=== PATIENT | female | born 1985 | race Hispanic/Latino ===

== ENCOUNTER → 2017-08-21 19:52 | Outpatient (CLI) | payer BC, SELFPAY ==
[2017-08-24 08:18] LABS: HPV Reflexed? NOT INDICATED
== END ==
PROVIDERS: Visit Provider Obstetrics & Gynecology
DX: Z12.4 Encounter for screening for malignant neoplasm of cervix (principal)
CPT/HCPCS: 88175; G0145

== ENCOUNTER 2018-06-07 06:46 | Emergency (ER) | payer BC, SELFPAY ==
[2018-06-07 06:48] VITALS: BP 101/74; PULSE 57; RESP 16; TEMP 36.6; O2SAT 99
--- NOTE | 2018-06-07 06:56 | ED.DCSUM_ITS ---
History of Present Illness Chief Complaint: Flank Pain Informant: Patient Onset: Days - Worse past 2 days. Pressure sensation left lower quadrant radiating to the left flank., Month(s) - She reports onset of intermittent discomfort left lower quadrant approximately 2 months ago. Context: Sudden Onset Timing: Continuous - Continuous past 2 days, Intermittent - Intermittent until 2 days ago Quality: Pressure sensation Location: LLQ and left flank Current Severity: Moderate Maximum Severity: Severe Worsened by: Worse supine Relieved by: Apparently better if upright Associated Symptoms: Nausea and pressure with urination Narrative: Patient is a 35-year-old woman who presents with initially intermittent left lower quadrant abdominal pain that is now constant for the past 2 days. She describes as a pressure sensation. The discomfort radiates to the left flank. There is pressure with urination. She denies hematuria. Denies history of renal ureterolithiasis. Last normal menstrual period May 17. She is sexually active. Uses no form of control. She has no history of gynecologic problems. There is no history of renal or ureterolithiasis. There is no history of trauma. She denies fever, chills or night sweats. She does report nausea without vomiting or diarrhea. Prior similar symptoms: No Recent Illness/Hospitalization: No - Past Medical History (1) No significant past medical history Status: Acute Past Medical History - Allergies and Home Meds Allergies/Adverse Reactions: Allergies No Known Allergies Allergy (Verified 06/07/18 06:47) Primary Care Physician: Care Physician,No Primary [Primary Care Provider] - Prior records reviewed: Yes Past Medical History: None Surgical History: no surgical history Lives: Spouse/ Significant Other Smoking Status: Never smoker Alcohol: Occasional Drugs: None Review of Systems General: Denies: Chills, Fever, Malaise, Sweats, Weight loss Eyes: Denies: Visual changes - bilaterally, Diplopia ENT: Denies: Rhinorrhea, Sore throat Cardiovascular: Denies: Chest pain, Palpitations Respiratory: Denies: Dyspnea, Cough, Dyspnea on exertion Gastrointestinal: Reports: Abdominal pain, Nausea Genitourinary: Reports: - - She reports urgency and pressure.. Denies: Dysuria, Hematuria, Frequency Musculoskeletal: Reports: Back pain - Left flank past 2 days. Denies: Myalgias, Arthralgias, Neck pain, Swelling, Extremity Pain, -, - Skin: Denies: Rash, Wounds Neurological: Denies: Headache, Weakness, Numbness Hematologic: Denies: Easy bruising, Easy bleeding Allergy: Denies: Uticaria Physical Exam Inital Vital Signs reviewed: Yes General: Well nourished, Well developed, No Acute Distress Head: Normocephalic, Atraumatic Eyes: Perrl, EOMI. Negative for: Pale conjunctiva, Scleral icterus, - ENT: Moist mucous membranes, No rhinorrhea Neck: Supple, Nontender, No lymphadenopathy, No JVD Cardiovascular: Regular rate, Regular rhythm, No murmurs, Normal S1, Normal S2 Respiratory: No distress, CTA bilaterally, Chest nontender Abdomen: Soft, Nondistended, Normal bowel sounds, No masses, Tender. Negative for: Guarding, Rebound tenderness, Hepatomegaly, Splenomegaly, Mass, Pulsatile mass Rectal: Deferred Back: Nontender, Normal Inspection, CVA tenderness - Left flank Extremities: Nontender, No edema Skin: Normal color, No rash Neurological: Alert, Oriented x3, Cranial nerves II-XII grossly intact, Normal Strength, Normal Sensation, Normal Gait Psychological: Normal affect, Normal Mood Diagnostic/Tx/Re-eval Impressions Abdomen/Pelvis CT 06/07/18 07:30 IMPRESSION: No obstructive uropathy or suspicious solid organ abnormality No CT evidence of an acute inflammatory process, normal appendix visualized. Retained stool in the colon Uterus appears enlarged, there may be underlying fibroids. Electronically Signed: Glynn Dominguez MD at 8:04 EDT , Service support , 06/07/18 07:30 Abdomen/Pelvis without Cont [CT] Stat Laboratory Results 06/07/18 06/07/18 06/07/18 07:00 07:00 07:00 WBC 8.0 RBC 4.15 L Hgb 12.9 Hct 37.6 MCV 90.6 MCH 31.1 MCHC 34.3 RDW 12.5 RDW Differential 40.9 Plt Count 273 MPV 9.5 Immature Gran % (Auto) 0.100 Neut % (Auto) 53.5 Lymph % (Auto) 38.8 Powell % (Auto) 6.4 Eos % (Auto) 0.9 Baso % (Auto) 0.3 Absolute Neuts (auto) 4.3 Absolute Lymphs (auto) 3.10 Total Counted Not Reportable Sodium 141 Potassium 4.0 Chloride 109 H Carbon Dioxide 25.0 Anion Gap 7 BUN 22 H Creatinine 0.76 Estim Creat Clear Calc 93.03 Est GFR (MDRD) Af Amer 111 Est GFR (MDRD) Non-Af 91 BUN/Creatinine Ratio 28.8 H Glucose 95 Calcium 8.2 L Serum , Qual NEGATIVE Urine Color Urine Clarity Urine pH Ur Specific [place] Urine Protein Urine Glucose (UA) Urine Ketones Urine Occult Blood Urine Nitrite Urine Bilirubin Urine Urobilinogen Ur Leukocyte Esterase Urine RBC Urine WBC Ur Squamous Epith Cells Ur Transition Epith Cell Urine Bacteria Urine Mucus 06/07/18 07:02 WBC RBC Hgb Hct MCV MCH MCHC RDW RDW Differential Plt Count MPV Immature Gran % (Auto) Neut % (Auto) Lymph % (Auto) Powell % (Auto) Eos % (Auto) Baso % (Auto) Absolute Neuts (auto) Absolute Lymphs (auto) Total Counted Sodium Potassium Chloride Carbon Dioxide Anion Gap BUN Creatinine Estim Creat Clear Calc Est GFR (MDRD) Af Amer Est GFR (MDRD) Non-Af BUN/Creatinine Ratio Glucose Calcium Serum , Qual Urine Color Yellow Urine Clarity Clear Urine pH 5.0 Ur Specific [place] 1.020 Urine Protein Negative Urine Glucose (UA) Normal Urine Ketones Negative Urine Occult Blood 50 H Urine Nitrite Negative Urine Bilirubin Negative Urine Urobilinogen Normal Ur Leukocyte Esterase 100 H Urine RBC 0 SEEN Urine WBC 0-5 SEEN Ur Squamous Epith Cells 0-5 SEEN Ur Transition Epith Cell 0 SEEN Urine Bacteria 1+ Urine Mucus 0 SEEN - Medical Decision Making Patient with history of intermittent discomfort with urinary symptoms. This may represent diverticulitis versus urologic etiology versus gynecologic. Since she is sexually active and does not use any form of control will obtain serum test. CBC and BMP were obtained to assess white count and H&H as well as a likely panel and renal function. UA was obtained to evaluate for urinary tract infection. Patient was medicated with Zofran and Toradol. After labs have returned we will reassess and determine if patient needs CT of the abdomen and pelvis with and without contrast. Patient's work-up was remarkable for uterine fibroids. She now informed me that she has had pain for 4 months. 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 Nicho Donohue. ED Disposition - Plan for ED Patient: Disposition: Home or Assisted Living Diagnosis: Fibroid, uterine Instructions: ED Fibroids Referrals: Care Physician,No Primary [Primary Care Provider] - Nicho Donohue MD [STAFF PHYSICIAN] - 5-7 Days
[2018-06-07] MEDS: 0.9% Normal Saline 1,000 ML 250 ML IV (07:04)
[2018-06-07] MEDS: Ondansetron 4 MG/2 ML Vial IV (07:04)
[2018-06-07] MEDS: Ketorolac 15 MG/ML Vial IV (07:06)
[2018-06-07 07:09] LABS: Mucous, Urine 0 SEEN /hpf (<or=2+); Red Blood Cells-Urine 0 SEEN /hpf (0-5)
[2018-06-07 07:18] LABS: Color, Urine Yellow (Yellow); Glucose, Dipstick Normal (Normal); Ketone-Dipstick Negative (Negative); Leukocyte Esterase-Dipstick 100 /ul (Negative); Nitrite-Dipstick Negative (Negative); Occult Blood-Urine 50 /ul (Negative); Protein-Dipstick Negative (Negative); Urine Bilirubin Dipstick Negative (Negative); Urine Clarity Clear (Clear); Urine Urobilinogen Normal (Normal)
[2018-06-07 07:20] LABS: Absolute Neutrophil Count 4.3 X10^3/uL (2.0-7.7); Basophil# 0.02 X10^3/uL; Basophil% 0.3 % (0-1); Eosinophil# 0.07 X10^3/uL; Eosinophils% 0.9 % (0-5); Hematocrit 37.6 % (37-47); Hemoglobin 12.9 g/dl (12.0-15.0); Lymphocyte % 38.8 % (19-41); Mean Corp Hgb Conc 34.3 g/gl (32-36); Mean Corpuscular Hgb 31.1 pg (27.0-32.0); Mean Corpuscular Volume 90.6 fL (81-99); Mean Platelet Vol. 9.5 fl (6.2-12.0); Monocyte# 0.51 X10^3/uL; Monocyte% 6.4 % (0-10); Neutrophil # 4.27 X10^3/uL (2.7-7.7); Neutrophil % 53.5 % (47-70); Platelet Count 273 K/mm3 (150-450); RBC Distribution Width CV 12.5 % (11.6-14.6); RBC Distribution Width SD 40.9 fl (35.1-43.9); Red Blood Count 4.15 M/mm3 (4.2-5.4)
[2018-06-07 07:21] LABS: Internal QC Validated? YES +Cl - CLEAR BKGD; Pregnancy, Serum, hCG Quali. NEGATIVE Negative
[2018-06-07 07:22] LABS: POSITIVE COUNT NO; POSITIVE DIFFERENTIAL NO; POSITIVE MORPHOLOGY NO
[2018-06-07 07:25] LABS: Anion Gap 7 (5-15); BUN 22 mg/dL (7-18); BUN/Creat Ratio 28.8 RATIO (10-20); Calcium,Total 8.2 mg/dL (8.5-10.1); Chloride 109 mmol/L (98-107); Creatinine, Serum 0.76 mg/dL (0.55-1.02); EST Glomerular Filtration Rate 91 mL/min (>60); Est Glom Filt Rate - Afr Amer 111 mL/min (>60); Estimated Creatinine Clearance 93.03 ml/min; Glucose 95 mg/dL (74-106); Sodium Level 141 mmol/L (136-145)
[2018-06-07 07:26] LABS: Squamous Epithelial Cells - UA 0-5 SEEN /hpf (5-10); White Blood Cells 0-5 SEEN /hpf (0-5)
[2018-06-07 07:27] LABS: Bacteria 1+ /hpf (None Seen); Transitional Epithelial - Ur 0 SEEN /hpf (0-5)
--- NOTE | 2018-06-07 07:30 | CT_ITS ---
STUDY: CT ABDOMEN AND PELVIS WITHOUT CONTRAST REASON FOR EXAM: Female, 32 years old. Left-sided flank pain RADIATION DOSAGE (If Supplied By Facility): CTDIvol = ( 5.77 ) mGy, DLP = ( 264.24 ) mGycm TECHNIQUE: Transaxial images were obtained from the dome of the diaphragm to the symphysis pubis without oral contrast, and without intravenous contrast. Sagittal and coronal images were reconstructed. Individualized dose optimization techniques were used for this CT. COMPARISON: 06/29/2016 FINDINGS: The visualized lung bases are unremarkable. The visualized portions of the heart are within normal limits. Normal liver. Normal gallbladder and extrahepatic biliary system. Normal spleen. Normal pancreas. Normal bilateral adrenal glands. Normal right kidney. Normal left kidney. Normal visualized stomach. Normal small intestine. Retained stool noted throughout the colon. The appendix is visualized and appears normal. Appendix best seen on coronal recon image 60 Normal abdominal aorta. Normal inferior vena cava. Normal retroperitoneum. Normal urinary bladder. Uterus appears mildly enlarged, there may be underlying fibroids. Physiologic ovarian cysts are noted without free fluid in the cul-de-sac. Normal abdominal wall. Normal osseous structures. CT/Abdomen/Pelvis without Cont IMPRESSION: No obstructive uropathy or suspicious solid organ abnormality No CT evidence of an acute inflammatory process, normal appendix visualized. Retained stool in the colon Uterus appears enlarged, there may be underlying fibroids. Electronically Signed: Glynn Dominguez MD at 8:04 EDT , Service support ,
[2018-06-07 08:51] VITALS: PULSE 56; RESP 12
[2018-06-07 09:46] VITALS: BP 109/76; PULSE 89; RESP 14; O2SAT 99
== END 2018-06-07 09:47 | disposition home or self-care (01) ==
PROVIDERS: Emergency Provider Emergency Medicine
DX: D25.9 Leiomyoma of uterus, unspecified (principal)
CPT/HCPCS: 74176; 80048; 81001; 84703; 85025; 96361; 96374; 96375; 99284; J7030; A4216; J2405

== ENCOUNTER 2020-05-28 10:14 | Outpatient (RCR) | payer BC, SELFPAY | END 2020-07-21 23:59 | LOC: IMMUN 10:14 | PROVIDERS: PCP Family Medicine; Referring Provider Family Medicine; Visit Provider Family Medicine | DX: Z23 Encounter for immunization (principal) | CPT/HCPCS: 0001A; 0002A; 91300 ==

== ENCOUNTER → 2020-12-02 16:55 | Outpatient (CLI) | payer BC, SELFPAY ==
[2020-12-07 15:21] LABS: HPV Reflexed? NOT INDICATED
== END ==
PROVIDERS: PCP Family Medicine; Visit Provider Obstetrics & Gynecology
DX: Z12.4 Encounter for screening for malignant neoplasm of cervix (principal)
CPT/HCPCS: 88175; G0145

== ENCOUNTER 2024-12-12 17:00 | Outpatient (RCR) | payer BC, SELFPAY ==
--- NOTE | 2024-11-05 16:56 | HP.PTEVAL ---
Patient's Visit Information Visit Information Visit Information: ANUJ NAQVI is a 39 year old F referred to Physical Therapy by Dr. Isaac Dinh MD with a diagnosis of B knee chondromalacia patella. Date of Evaluation: 11/05/24 Physical Therapist: Lupillo Tiwari, DPT, OCS, CSCS Visit Plan Frequency: 1x/Week Duration: 4-6 Weeks Plan: weekly(pt choice) x 4-6 for progression of HEP. IE SLR abd, ext, flexion and progression to weights 3x15, suprmans 3x15 all daily with HO Next clamshell, lat walk, bridge, hydrants, crunches , planks leg lift, side plank clamshell. then body weight steps ups , squats, lunges and return to TM, slight plyo Subjective Subjective: B knee pain L >R. Works out in the morning and feels pinch in the knee. Pain is top of knee cap and anterior on L and L knee laterally for years. L has hurt for 3 months., Saw ortho and looked OK. No treatment adn sent for therapy. Feels pinching at times. L one hurts with hiking. Sleep is OK. Activities normal. Workout is : squats ,lifting, lunges and is 5days per week. Running has been stopped as impact hurts both knees.EElliptical is better. Hobbies: hiking, avoids. Basic ADLS Normal. 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 Pain L knee: Pain Intensity (Out of 10): 3 Pain Intensity Range: 0 and 6 Objective Objective: No antalgia in gait today adn pretty comfortable. steps reciprocal with some R knee pain ascending. Transfer bed and chair I without pain. Tender R knee lateral patella adn + patellar grind. R knee with + bounce home and tender medial joint line. flexibility is good in quads, ITB and HS to -5 90/90 test. reflexes 2/3 patella dn achilles B. sensation WNL to gross light touch B LE. strength core 4- abs and extensors. hip rotation 3 B, abd 3+, ext 3/5, flexion 3+ with contralateral hip instability to IR. knees crepitus in R qith quad 4/5 and HS 4/5 ankles 4+/5 B. - ant drawerr, post sag and pivot shift B. Balance/Special Test Scores Lower Extremity Functional Score: 72 Goals Goal 1:: I appropriate HEP for strength hips and core adn back to squats and lunges without pain. Goal Time Frame: 4-6 Weeks Goal 2:: pinching gone in L knee and pain 75% beetter at 1/10 at worst. Goal Time Frame: 4-6 Weeks Goal 3:: steps without antalgia or pain Goal Time Frame: 4-6 Weeks Goal 4:: LEFS 76 Goal Time Frame: 4-6 Weeks Rehabilitation Potential Physical Therapy Diagnosis: R knee pain patello femoral, L kneee pain possibly mniscal causing pain with daily fucniton and ex. Rehabilitation Potential: Good Anticipated Interventions Patient/Client Instruction: Educate patient on: Condition and Plan of Care For the Purpose of:: To decrease pain, To improve nutrient delivery to tissue, To increase tolerance to activity/condition/position and To improve ability of physical actions for home/community/work/leisure Therapeutic Exercise to Include: Strength training and Dynamic Lumbar Stabilization For the Purpose of:: To decrease pain, To increase ROM, To improve nutrient delivery to tissue, To improve muscle performance and motor function and To increase tolerance to activity/condition/position Text: Thank you for the opportunity to evaluate your patient. For Medicare and Medicare HMO plans, please review the plan of care and approve it. It will need to be FAXED BACK to us at [phone] for Medicare purposes. For Medicare only, by signing this I certify the plan of care. Please let me know if there are questions or concerns regarding this plan of care. Physician Signature: Date:
--- NOTE | 2024-12-12 18:02 | HP.PTDCSUM ---
Discharge Summary D/C summary: It has been my pleasure to treat ANUJ NAQVI referred by Dr. Isaac Dinh MD, with the diagnosis of B knee chondromalacia patella for a total of 4 visit(s). Discharge Date: 12/12/24 Please see the following information for a summary of their discharge status. Subjective Subjective: Doing Ok kwith knees, got back prescription. no pain in knees and only avoiding full workout more due to back Pain L knee: Pain Intensity (Out of 10): 4 Overall Improvement % Improvement: 75 Objective Objective/Function: full aROM knees without pain, granted activity slightly limited due to back but is good with exercises. computers down today during session so full recheck was limited. Goals Goal 1:: I appropriate HEP for strength hips and core adn back to squats and lunges without pain. Goal Progress: Goal Met Goal 2:: pinching gone in L knee and pain 75% beetter at 1/10 at worst. Goal Progress: Goal Met Goal 3:: steps without antalgia or pain Goal Progress: Goal Met Goal 4:: LEFS 76not tested Plan Plan: d/c to HEP, pt to doctor in 2 weeks. D/C Information d/c sentence: If there are questions or concerns regarding this patient's physical therapy, please feel free to call me at [phone]. Thank you for the referral of this patient. Sincerely, Lupillo Tiwari, DPT, OCS, CSCS Balance/Gait/Functional tests Balance/Special Test Scores Lower Extremity Functional Score: 72 Improvement % Improvement: 75
== END 2024-12-12 19:00 | disposition home or self-care (01) ==
LOC: PT 17:00
PROVIDERS: PCP Family Medicine; Referring Provider Specialist; Visit Provider Specialist
DX: M22.41 Chondromalacia patellae, right knee (principal); M22.42 Chondromalacia patellae, left knee
CPT/HCPCS: 97110; 97161

== ENCOUNTER 2025-01-30 16:30 | Outpatient (RCR) | payer BC, SELFPAY ==
--- NOTE | 2025-01-01 17:10 | HP.PTEVAL_ITS ---
Patient's Visit Information Visit Information Visit Information: ANUJ NAQVI is a 39 year old F referred to Physical Therapy by CHUCHO Fuller with a diagnosis of Lumbar radiculopathy.. Date of Evaluation: 01/01/25 Physical Therapist: Lupillo Tiwari, DPT, OCS, CSCS Visit Plan Frequency: 1x/Week Duration: 4-6 Weeks Plan: weekly to progress HEP as she travels alot and will do the x at home. IE HEP: posture with roll, minimize sitting, pelvic tilt as ROM, PPU 8x/day,Ho given. Weekly progression to rotational strength, yoga strtches, core mat strngth and postural /body mech focus. Next, mat core, yoga stretches and monitor lumbar ROM, may alison mobs. Subjective Subjective: Stopped doing knee exeercises a month or so ago b.c hard time bendi ng. back pain went away and then came back. pain prevents her from sitting too long> 2 hrs then will feel it. Standing in one position can cause it. Walking seems to be OK. 3 yrs ago something similar thing happened and saw doctor and x rays were OK. That time was from getting out of car. had MRI and a disc is pinching a nerve. This time made worse suddenly walking down 4 steps and turning and bending. is in quality mgmt and travels alot. Exercise not right now except hip strength cardio eelliptical 30 min daily. Activiites pretty normal.Vaccuum can make hr worse with bending. PPU has helped. No lg symptoms. Pain LBP: Pain Intensity (Out of 10): 0 Pain Intensity Range: 2 Comment: 2/10 with sitting travelling. Objective Objective: Walks into PT I without pain but some pressure emiddle LB, Trasnfrs I, steps I rciprocal up and down. no change or pain. Lumbar AROM ext mod limited and increased pressure with avoidance. flexion adn SB are OK. Weakness evident on core and hips with hip fleexion testing with contralateral IR and very hard aurelio with isolating pelvic movement knees and ankles 4/5 without pain. - slump - SLR reflexes 1/3 B pateella adn achills Sensation GAIL WNL to gross light touch. hesitant exitiing chair after sitting for a while. Balance/Special Test Scores Oswestry Low Back Score: 4 Goals Goal 1:: I appropriate sitting posture without VC necessary. Goal Time Frame: 4-6 Weeks Goal 2:: Full rOM lumbar without pain or pressure or hsitancy Goal Time Frame: 4-6 Weeks Goal 3:: I apporpriate ex, body mchanics to manage pain Goal Time Frame: 4-6 Weeks Goal 4:: Pain and movement feel 90% beetteer and not limiting Goal Time Frame: 4-6 Weeks Goal 5:: Back to full workout without discomfort. Goal Time Frame: 4-6 Weeks Rehabilitation Potential Physical Therapy Diagnosis: loss ROM and stiffness with postura syndrome in LB. Rehabilitation Potential: Good Anticipated Interventions Patient/Client Instruction: Educate patient on: Condition and Plan of Care For the Purpose of:: To increase ROM, To improve nutrient delivery to tissue, To improve muscle performance and motor function, To increase tolerance to activity/condition/position, To improve ability of physical actions for home/community/work/leisure and To improve gait and locomotor functions Therapeutic Exercise to Include: Strength training, Flexibilty training, Passive ROM, Active ROM and Dynamic Lumbar Stabilization For the Purpose of:: To increase ROM, To improve nutrient delivery to tissue, To improve muscle performance and motor function, To increase tolerance to activity/condition/position and To improve ability of physical actions for home/community/work/leisure Manual Therapy Techniques to Include: Mobilization and Soft tissue mobilization For the Purpose of:: To increase ROM Text: Thank you for the opportunity to evaluate your patient. For Medicare and Medicare HMO plans, please review the plan of care and approve it. It will need to be FAXED BACK to us at [phone] for Medicare purposes. For Medicare only, by signing this I certify the plan of care. Please let me know if there are questions or concerns regarding this plan of ca re. Physician Signature: Date:
--- NOTE | 2025-01-30 16:57 | HP.PTDCSUM ---
Discharge Summary D/C summary: It has been my pleasure to treat ANUJ NAQVI referred by CHUCHO Fuller, with the diagnosis of Lumbar radiculopathy. for a total of 3 visit(s). Discharge Date: 01/30/25 Please see the following information for a summary of their discharge status. Subjective Subjective: Still doing wll without pain. allexerciss going well. Activities normal, Sleep normal. Doing everything Back is back to normal and she wishs to cotninue current exercises rather than expand more or to gym right now. Pain LBP: Pain Intensity (Out of 10): 0 Overall Improvement % Improvement: 100 Objective Objective/Function: Fulkl lumbar ROM without pain today, trasnfers without pain. walking well. No concerns with home activitis and liks the idea of holding here and continuing just current ex. Goals Goal 1:: I appropriate sitting posture without VC necessary. Goal Progress: Goal Met Goal 2:: Full rOM lumbar without pain or pressure or hsitancy Goal Progress: Goal Met Goal 3:: I apporpriate ex, body mchanics to manage pain Goal Progress: Goal Met Goal 4:: Pain and movement feel 90% beetteer and not limiting Goal Progress: Goal Met Goal 5:: Back to full workout without discomfort. Goal Progress: Goal Met Plan Plan: d/c to current HEP D/C Information d/c sentence: If there are questions or concerns regarding this patient's physical therapy, please feel free to call me at [phone]. Thank you for the referral of this patient. Sincerely, Lupillo Tiwari, DPT, OCS, CSCS Balance/Gait/Functional tests Balance/Special Test Scores Oswestry Low Back Score: 0 Improvement % Improvement: 100
== END 2025-01-30 19:00 | disposition home or self-care (01) ==
LOC: PT 16:30
PROVIDERS: PCP Family Medicine; Referring Provider Physician Assistant Surgical; Visit Provider Physician Assistant Surgical
DX: M48.061 Spinal stenosis, lumbar region without neurogenic claudication (principal); M54.16 Radiculopathy, lumbar region
CPT/HCPCS: 97110; 97161; 97164